=== PATIENT | male | born 1970 | race Two or more races ===

== ENCOUNTER 2022-02-02 16:00 | Emergency (ER) | payer MEDICAID, OTHER ==
[~2022-02-02] VITALS: Ht 167.6 cm; Wt 79.0 kg
[2022-02-03] MEDS ORDERED: NIFE1TAB30 PO (00:12)
[2022-02-03] MEDS ORDERED: ASPI-498 OR (00:12)
[2022-02-03] MEDS ORDERED: METF-929 PO (00:12)
[2022-02-03] MEDS ORDERED: CARB200T5 PO (00:12)
[2022-02-03] MEDS ORDERED: PHEN125S PO (00:12)
[2022-02-03] MEDS ORDERED: GLIP-218 PO (00:12)
[2022-02-03] MEDS ORDERED: CYAN500S8 SL (00:12)
[2022-02-03] MEDS ORDERED: PRAV20TA3 PO (00:12)
[2022-02-03 03:50] VITALS: BP 165/80
== END 2022-02-03 04:05 | disposition home or self-care (01) ==
LOC: ER 16:00
DX: G40.909 Epilepsy, unspecified, not intractable, without status epilepticus (principal); E78.00 Pure hypercholesterolemia, unspecified; I10 Essential (primary) hypertension; E11.9 Type 2 diabetes mellitus without complications; Z86.73 Personal history of transient ischemic attack (TIA), and cerebral infarction without residual deficits